=== PATIENT | female | born 1965 | race Caucasian/White ===

== ENCOUNTER 2019-07-06 10:46 | Emergency (ER) | payer OTHER ==
[2019-07-06] MEDS ORDERED: HYDR-2966 PO ×2 (11:00→11:18)
[2019-07-06] MEDS ORDERED: AMLO-127 PO ×2 (11:00→11:18)
[2019-07-06] MEDS ORDERED: ATOR40TA24 PO ×2 (11:00→11:18)
[2019-07-06] MEDS ORDERED: LISI-362 PO ×2 (11:00→11:18)
[2019-07-06] MEDS ORDERED: CLOP75TA PO (11:00)
[2019-07-06] MEDS ORDERED: ASPI-1471 PO (11:00)
[2019-07-06 11:01] VITALS: BP 141/97
[2019-07-06] MEDS ORDERED: CLOP75TA43 PO (11:18)
--- NOTE | 2019-07-06 11:19 | ER Report ---
History and Physical Time Seen By MD: 11:20 Hx. of Stated Complaint: out of blood pressure medications last filled 04/19/2019 HPI/ROS CHIEF COMPLAINT: Medication refill HISTORY OF PRESENT ILLNESS: Patient is a 54-year-old female who presents with her for request of medication refill. Patient has a history of a stroke with minimal residual disability afterwards however has run out of her prescription medications which include Plavix 75 mg daily, lisinopril 10 mg daily, Lipitor 40 mg daily, amlodipine 10 mg daily and hydrochlorothiazide 25 mg daily. They are traveling and are unable to get refills of these medications. Patient is symptom-free at this time Allergies: Coded Allergies: Penicillins (Verified Allergy, Unknown, RASH, 07/06/19) Sulfa (Sulfonamide Antibiotics) (Verified Allergy, Unknown, HIVES, 07/06/19) ampicillin (Verified Allergy, Unknown, RASH, 07/06/19) Home Meds Active Scripts Lisinopril (LISINOPRIL) 10 Mg Tablet, 10 MG PO QDAY for 30 Days, #30 TAB 1 Refill Prov:OMER CARTY MD 07/06/19 Amlodipine Besylate (AMLODIPINE BESYLATE) 10 Mg Tablet, 1 TAB PO QDAY for 30 Days, #30 TAB 1 Refill Prov:OMER CARTY MD 07/06/19 Clopidogrel Bisulfate (PLAVIX) 75 Mg Tablet, 1 TAB PO QDAY for 30 Days, #30 TAB 1 Refill Prov:OMER CARTY MD 07/06/19 Atorvastatin Calcium (LIPITOR) 40 Mg Tablet, 1 TAB PO QDAY for 30 Days, #30 TAB 1 Refill Prov:OMER CARTY MD 07/06/19 Hydrochlorothiazide (HYDROCHLOROTHIAZIDE) 25 Mg Tablet, 1 TAB PO QDAY for 30 Days, #30 TAB 1 Refill Prov:OMER CARTY MD 07/06/19 Reported Medications Aspirin (ASPIR 81) 81 Mg Tablet.dr, 81 MG PO QDAY, TAB 07/06/19 Clopidogrel Bisulfate (CLOPIDOGREL) 75 Mg Tablet, 1 TAB PO QDAY, TAB 07/06/19 Lisinopril (LISINOPRIL) 10 Mg Tablet, 10 MG PO QDAY, TAB 07/06/19 Atorvastatin Calcium (LIPITOR) 40 Mg Tablet, 1 TAB PO QDAY, TAB 07/06/19 Amlodipine Besylate (AMLODIPINE BESYLATE) 10 Mg Tablet, 1 TAB PO QDAY, TAB 07/06/19 Hydrochlorothiazide (HYDROCHLOROTHIAZIDE) 25 Mg Tablet, 1 TAB PO QDAY, TAB 07/06/19 Past Medical/Surgical History History of prior CVA Hx Substance Use Disorder: No Hx Alcohol Use: No Constitutional Vital Sign - Last 24 Hours 07/06/19 11:01 Temp 97.8 Pulse 83 Resp 14 B/P (MAP) 141/97 Pulse Ox 88 O2 Delivery Room Air Physical Exam General appearance: Alert no distress. Respiratory: Chest is non tender, lungs are clear to auscultation. Cardiac: Regular rate and rhythm [ ] [ ] [ ] Medical Decision Making ED Course/Re-evaluation ED Course Plan will be refill of patient's prescription medications. Decision to Disposition Date: Jul 06, 2019 Decision to Disposition Time: 11:25 Depart Departure Latest Vital Signs Vital Signs Date Time Temp Pulse Resp B/P (MAP) Pulse Ox O2 Delivery O2 Flow Rate FiO2 07/06/19 11:01 97.8 83 14 141/97 88 Room Air Impression: Primary Impression: Medication refill Condition: Condition Unchanged Disposition: HOME OR SELF-CARE New Scripts Lisinopril (LISINOPRIL) 10 Mg Tablet 10 MG PO QDAY for 30 Days, #30 TAB 1 Refill Prov: OMER CARTY MD 07/06/19 Amlodipine Besylate (AMLODIPINE BESYLATE) 10 Mg Tablet 1 TAB PO QDAY for 30 Days, #30 TAB 1 Refill Prov: OMER CARTY MD 07/06/19 Clopidogrel Bisulfate (PLAVIX) 75 Mg Tablet 1 TAB PO QDAY for 30 Days, #30 TAB 1 Refill Prov: OMER CARTY MD 07/06/19 Atorvastatin Calcium (LIPITOR) 40 Mg Tablet 1 TAB PO QDAY for 30 Days, #30 TAB 1 Refill Prov: OMER CARTY MD 07/06/19 Hydrochlorothiazide (HYDROCHLOROTHIAZIDE) 25 Mg Tablet 1 TAB PO QDAY for 30 Days, #30 TAB 1 Refill Prov: OMER CARTY MD 07/06/19 Patient Instructions: Medicine Refill (ED) OMER CARTY MD Jul 06, 2019 11:19
== END 2019-07-06 11:26 | disposition home or self-care (01) ==
LOC: ER 10:58
DX: Z76.0 Encounter for issue of repeat prescription (principal)
CPT/HCPCS: 99281